=== PATIENT | male | born 1950 | race Caucasian/White ===

== ENCOUNTER 2017-11-04 20:00 | Inpatient (IN) | payer MEDICARE, OTHER ==
[~2017-11-04] VITALS: Ht 175.3 cm; Wt 68.0 kg
[~2017-11-04 20:00] MED LIST: 0.9 % SODIUM CHLORIDE 10 ML VIAL ONE; atropine 0.1mg/ml 10ml syringe ONE; calcium chloride 100 MG/1 ML inj IV ONE; dextrose 50%-water 50ml dispensing syringe IV ONE; epiNEPHrine 0.1mg/ml 10ml syringe ONE; rocuronium 10mg/ml inj IV ONE; sodium bicarbonate (8.4%) 1 mEq/ml syringe ONE
[2017-11-04] MEDS ORDERED: normal saline 1000ml 1,000 ML IV ONE ×3 (20:35→21:55)
[2017-11-04] MEDS ORDERED: diltiazem 5mg/ml 5ml inj. IV ONE ×2 (20:35→21:00)
[2017-11-04] MEDS ORDERED: aspirin 81mg tab.chew PO ONE (20:35)
[2017-11-04] MEDS ORDERED: LORazepam 2 mg/ml vial IV ONE (20:35)
[2017-11-04] MEDS ORDERED: diltiazem-NS 100mg/100ml 100 ML IV SCH (20:55)
[2017-11-04] MEDS ORDERED: ondansetron/PF 4mg/2ml inj IV ONE (21:00)
[2017-11-04 21:05] LABS: BASOPHILS % (AUTO) 0 % (0-1); EOSINOPHILS # (AUTO) 0.1 X10'3 (0-0.9); EOSINOPHILS % (AUTO) 0.8 % (0-6); HEMATOCRIT 44.3 % (42.0-52.0); LYMPHOCYTES # (AUTO) 0.7 X10'3 (1.1-4.8); LYMPHOCYTES % (AUTO) 6.7 % (21-51); MEAN CORPUSCULAR HEMOGLOBIN 33.6 PG (27.0-31.0); MEAN CORPUSCULAR HGB CONC 33.8 % (33.0-36.5); MEAN CORPUSCULAR VOLUME 99.2 FL (78-98); MEAN PLATELET VOLUME 11.2 FL (7.4-10.4); MONOCYTES # (AUTO) 0.9 X10'3 (0-0.9); MONOCYTES % (AUTO) 8.7 % (2-12); NEUTROPHILS # (AUTO) 8.8 X10'3 (1.8-7.7); NEUTROPHILS % (AUTO) 83.8 % (42-75); PLATELET COUNT 115 X10'3 (140-440); RED BLOOD COUNT 4.46 X10'6 (4.70-6.10); WHITE BLOOD COUNT 10.5 X10'3 (4.5-11.0)
[2017-11-04 21:20] LABS: ALBUMIN 3.9 G/DL (3.4-5.0); ALBUMIN/GLOBULIN RATIO 1.2 (1.1-1.5); ALKALINE PHOSPHATASE 132 IU/L (46-116); ANION GAP 25 (8-16); BILIRUBIN,TOTAL 2.8 MG/DL (0.1-1.0); BLOOD UREA NITROGEN 65 MG/DL (7-18); BUN/CREATININE RATIO 22.9 (5.4-32.0); CALCIUM 8.8 MG/DL (8.5-10.1); CHLORIDE 93 MMOL/L (99-107); CREATININE 2.84 MG/DL (0.60-1.10); GLUCOSE 122 MG/DL (70-104); MAGNESIUM 2.8 MG/DL (1.5-2.4); SODIUM 131 MMOL/L (135-145); TOTAL PROTEIN 7.1 G/DL (6.4-8.2); eGFR 22 ML/MIN
[2017-11-04 21:28] LABS: ALANINE AMINOTRANSFERASE 1920 U/L (12-78); POTASSIUM 5.1 MMOL/L (3.5-5.1)
[2017-11-04 21:37] LABS: TOTAL CARBON DIOXIDE 12.9 MMOL/L (24-32)
[2017-11-04 22:09] LABS: ASPARTATE AMINO TRANSFERASE 2938 U/L (10-37)
[2017-11-04] MEDS ORDERED: ALBU18HF2 (22:15)
[2017-11-04] MEDS ORDERED: PROC10TA10 (22:15)
[2017-11-04] MEDS ORDERED: AZIT250T27 (22:15)
[2017-11-04] MEDS ORDERED: amiodarone 150mg/dext, iso-os 100 ML IV ONE (22:40)
[2017-11-04] MEDS ORDERED: potassium Cl 20 mEq SR tablet PO PRN ×2 (23:00)
[2017-11-04] MEDS ORDERED: potassium Cl 40MEQ/NS 500ml 500 ML IV PRN ×2 (23:00)
[2017-11-04] MEDS ORDERED: acetaminophen 325mg tablet PO PRN ×2 (23:00)
[2017-11-04] MEDS ORDERED: ondansetron/PF 4mg/2ml inj IV PRN (23:00)
[2017-11-04] MEDS ORDERED: morphine 2 MG/ML inj. syringe IV PRN (23:00)
[2017-11-04] MEDS ORDERED: morphine 4 MG/ML inj SYRINge IV PRN (23:00)
[2017-11-04] MEDS: K, MAG and/or Phos replacement - Verify level? MC SCH (23:00)
[2017-11-04] MEDS: normal saline 1000ml 1,000 ML IV SCH (23:00)
[2017-11-04] MEDS: amiodarone/D5 360MG/200ML BAG 200 ML IV SCH (23:53)
[2017-11-05] VITALS (43 sets, daily range): BP systolic 31–136; BP diastolic 19–94
[2017-11-05 00:41] LABS: ALBUMIN/GLOBULIN RATIO 1.2 (1.1-1.5); ALKALINE PHOSPHATASE 102 IU/L (46-116); ANION GAP 27 (8-16); BILIRUBIN,TOTAL 2.5 MG/DL (0.1-1.0); BLOOD UREA NITROGEN 63 MG/DL (7-18); BUN/CREATININE RATIO 23.3 (5.4-32.0); CALCIUM 7.5 MG/DL (8.5-10.1); CHLORIDE 97 MMOL/L (99-107); GLUCOSE 127 MG/DL (70-104); MAGNESIUM 2.6 MG/DL (1.5-2.4); PHOSPHORUS 8.2 MG/DL (2.3-4.5); POTASSIUM 4.9 MMOL/L (3.5-5.1); SODIUM 131 MMOL/L (135-145); TOTAL PROTEIN 5.5 G/DL (6.4-8.2); eGFR 24 ML/MIN
[2017-11-05 00:48] LABS: TOTAL CARBON DIOXIDE 6.9 MMOL/L (24-32)
[2017-11-05 01:02] LABS: ALANINE AMINOTRANSFERASE 1497 U/L (12-78); ASPARTATE AMINO TRANSFERASE 2567 U/L (10-37)
[2017-11-05 02:17] LABS: LARGE PLATELETS FEW; PLATELET ESTIMATE DECREASED
[2017-11-05] MEDS ORDERED: dextrose 50%-water 50ml dispensing syringe IV ONE (03:00)
[2017-11-05] MEDS: DOPamine 400mg/D5W 250ml 250 ML IV ONE ×2 (03:20→03:39)
[2017-11-05] MEDS ORDERED: ePHEDrine 50MG/ML INJ. IV ONE (03:40)
[2017-11-05] MEDS ORDERED: atropine 0.1mg/ml 10ml syringe IV ONE (03:40)
[2017-11-05] MEDS ORDERED: normal saline 500ml IV soln 500 ML IV ONE ×2 (03:45→04:30)
[2017-11-05] MEDS ORDERED: NORepinephrine 8mg/ 250ml NS 250 ML IV ONE ×2 (03:50→08:32)
[2017-11-05] MEDS ORDERED: epiNEPHrine 1 mg/ml inj IV STA (03:50)
[2017-11-05] MEDS ORDERED: vasoPRESSIN 20 units/ml inj. ONE (04:07)
[2017-11-05 04:10] LABS: ABG BASE EXCESS -29.4 mmol/L (-2.0-3.0); ABG HCO3 7.9 mmol/L (22.0-26.0); ABG OXYGEN SATURATION 72.3 % (95-98); ABG PH (T) 6.693 (7.350-7.450); ABG PO2 (T) 68.9 mmHg (83-108); FCOHb 0.3 % (0.5-1.5); FMetHb 0.5 % (0.3-1.12); FO2Hb 71.7 % (94-100); PATIENT TEMPERATURE 35.9; RESPIRATORY RATE (OBSERVED) 20 b/min; TOTAL HEMOGLOBIN 13.5 G/dl (14.0-18.0)
[2017-11-05] MEDS: vasopressin inj. 60 UNIT in normal saline 100ml IV soln 97 ML IV SCH ×2 (04:25→17:59)
[2017-11-05] MEDS ORDERED: rocuronium 10mg/ml inj IV ONE (04:25)
[2017-11-05] MEDS ORDERED: normal saline 1000ml 1,000 ML IV ONE (04:30)
[2017-11-05 04:35] LABS: ALBUMIN 2.6 G/DL (3.4-5.0); ALBUMIN/GLOBULIN RATIO 1.1 (1.1-1.5); ALKALINE PHOSPHATASE 96 IU/L (46-116); ANION GAP 24 (8-16); BILIRUBIN,TOTAL 2.5 MG/DL (0.1-1.0); BLOOD UREA NITROGEN 62 MG/DL (7-18); BUN/CREATININE RATIO 19.7 (5.4-32.0); CALCIUM 7.3 MG/DL (8.5-10.1); CHLORIDE 97 MMOL/L (99-107); CREATININE 3.14 MG/DL (0.60-1.10); GLUCOSE 187 MG/DL (70-104); SODIUM 131 MMOL/L (135-145); TOTAL PROTEIN 4.9 G/DL (6.4-8.2); eGFR 20 ML/MIN
[2017-11-05] MEDS ORDERED: sodium bicarbonate (8.4%) 1 mEq/ml syringe ONE (04:38)
[2017-11-05] MEDS ORDERED: sodium bicarbonate (8.4%) 1 mEq/ml syringe IV ONE ×2 (04:40→20:00)
[2017-11-05] MEDS: sod bicarbonate 150mEq in D5W 1,150 ML IV SCH ×3 (04:41→17:46)
[2017-11-05] MEDS: amiodarone/D5 360MG/200ML BAG 200 ML IV SCH ×4 (04:43→22:55)
[2017-11-05 04:48] LABS: ALANINE AMINOTRANSFERASE 1477 U/L (12-78); ASPARTATE AMINO TRANSFERASE 3052 U/L (10-37); POTASSIUM 5.6 MMOL/L (3.5-5.1)
[2017-11-05 04:49] LABS: TOTAL CARBON DIOXIDE 9.8 MMOL/L (24-32)
[2017-11-05 05:11] LABS: ABG BASE EXCESS -20.6 mmol/L (-2.0-3.0); ABG HCO3 11.1 mmol/L (22.0-26.0); ABG OXYGEN SATURATION 81.3 % (95-98); ABG PCO2 (T) 43.4 mmHg (35.0-48.0); ABG PH (T) 7.001 (7.350-7.450); ABG PO2 (T) 58.7 mmHg (83-108); FCOHb 0.3 % (0.5-1.5); FMetHb 0.4 % (0.3-1.12); FO2Hb 80.7 % (94-100); MINUTE VOLUME 12 L/min; PATIENT TEMPERATURE 33.6; PEEP 5 cm H2O; RESPIRATORY RATE 25 b/min; RESPIRATORY RATE (OBSERVED) 25 b/min; TIDAL VOLUME 450 mL; TOTAL HEMOGLOBIN 12.8 G/dl (14.0-18.0)
[2017-11-05] MEDS ORDERED: FENTANYL-0.9 % NACL/PF 100 ML IV PRN (05:15)
[2017-11-05] MEDS ORDERED: ipratropium/albuterol 3ml nebule NEB PRN (05:15)
[2017-11-05] MEDS ORDERED: midazolam 100mg in NS 100ml 100 ML IV PRN (05:15)
[2017-11-05] MEDS: piperacillin-tazo 2.25gm/50ml 50 ML IV SCH ×3 (05:50→20:38)
[2017-11-05] MEDS ORDERED: piperacillin/tazo 3.375gm/50ml 50 ML IV ONE (05:55)
[2017-11-05 06:32] LABS: ALBUMIN 2.6 G/DL (3.4-5.0); ANION GAP 27 (8-16); BLOOD UREA NITROGEN 62 MG/DL (7-18); BUN/CREATININE RATIO 21.2 (5.4-32.0); CHLORIDE 96 MMOL/L (99-107); CREATININE 2.92 MG/DL (0.60-1.10); GLUCOSE 215 MG/DL (70-104); SODIUM 133 MMOL/L (135-145); eGFR 22 ML/MIN
[2017-11-05 06:35] LABS: POTASSIUM 4.4 MMOL/L (3.5-5.1)
[2017-11-05 06:37] LABS: TOTAL CARBON DIOXIDE 10.1 MMOL/L (24-32)
[2017-11-05 06:39] LABS: PARTIAL THROMBOPLASTIN TIME 66 SECONDS (22-32); PROTHROMBIN TIME 40.8 SECONDS (9.0-12.0)
[2017-11-05] MEDS ORDERED: calcium chloride 100 MG/1 ML inj IV ONE ×2 (06:45)
[2017-11-05 06:49] LABS: BASOPHILS % (AUTO) 0.3 % (0-1); EOSINOPHILS % (AUTO) 0.1 % (0-6); HEMATOCRIT 37.8 % (42.0-52.0); HEMOGLOBIN 12.7 g/dl (14.0-17.9); LYMPHOCYTES # (AUTO) 0.5 X10'3 (1.1-4.8); LYMPHOCYTES % (AUTO) 5.8 % (21-51); MEAN CORPUSCULAR HEMOGLOBIN 33.5 PG (27.0-31.0); MEAN CORPUSCULAR HGB CONC 33.6 % (33.0-36.5); MEAN CORPUSCULAR VOLUME 99.6 FL (78-98); MEAN PLATELET VOLUME 9.5 FL (7.4-10.4); MONOCYTES # (AUTO) 0.2 X10'3 (0-0.9); MONOCYTES % (AUTO) 2.2 % (2-12); NEUTROPHILS # (AUTO) 7.2 X10'3 (1.8-7.7); NEUTROPHILS % (AUTO) 91.6 % (42-75); RED BLOOD COUNT 3.79 X10'6 (4.70-6.10); RED CELL DISTRIBUTION WIDTH 14.1 % (11.5-14.5); WHITE BLOOD COUNT 7.9 X10'3 (4.5-11.0)
[2017-11-05 06:57] LABS: INR 4.1 INR
[2017-11-05 07:07] LABS: CLARITY,URINE SLIGHTLY CLOUDY (Clear); COLOR,URINE YELLOW (Yellow); GLUCOSE, URINE NEGATIVE (Neg); KETONES,URINE NEGATIVE (Neg); LEUKOCYTE ESTERASE ,URINE NEGATIVE (Neg); NITRITES, URINE NEGATIVE (Neg); OCCULT BLOOD,URINE TRACE-INTACT (Neg); PH,URINE 5.5 (4.8-8.0); PROTEIN,URINE 100 mg/dl (Neg); UROBILINOGEN,URINE 0.2 E.U/dL (0.2-1.0)
[2017-11-05 07:21] LABS: SODIUM,URINE RANDOM < 15 MEQ/L; TOTAL PROTEIN,URINE RANDOM 127.7 MG/DL; UA COLLECTION TYPE FOLEY CATH
[2017-11-05 07:22] LABS: AMORPHOUS URATES 2+
[2017-11-05 07:23] LABS: BACTERIA,URINE NONE SEEN /HPF (Neg); RBC,URINE NONE SEEN /HPF (0-2); SQUAMOUS EPITHELIAL CELL,UR FEW /LPF (FEW); WBC,URINE 0-4 /HPF (0-4)
[2017-11-05 07:41] LABS: OSMOLALITY UA 509 MOSM/K (50-1400)
[2017-11-05 07:54] LABS: PLATELET COUNT 50 X10'3 (140-440)
[2017-11-05] MEDS: K, MAG and/or Phos replacement - Verify level? MC SCH (08:00)
[2017-11-05] MEDS: heparin, porcine 5000 units/ml vial SQ SCH ×2 (08:00→20:00)
[2017-11-05 08:03] LABS: UA EOSINOPHILS NO EOS /HPF
[2017-11-05] MEDS: hydrocortisone sod succ/PF 100mg/2ml inj. IV SCH ×3 (08:12→19:10)
[2017-11-05 08:18] LABS: ACETAMINOPHEN 2.4 UG/ML (10-30)
[2017-11-05] MEDS ORDERED: levoFLOXACIN-Levaquin 750MG/D5 150 ML IV SCH (09:00)
[2017-11-05 09:01] LABS: ABG BASE EXCESS -17.2 mmol/L (-2.0-3.0); ABG HCO3 10.1 mmol/L (22.0-26.0); ABG OXYGEN SATURATION 97.8 % (95-98); ABG PCO2 (T) 25.8 mmHg (35.0-48.0); ABG PH (T) 7.194 (7.350-7.450); ABG PO2 (T) 123.5 mmHg (83-108); FCOHb 0.3 % (0.5-1.5); FMetHb 0.3 % (0.3-1.12); FO2Hb 97.2 % (94-100); MINUTE VOLUME 12 L/min; PATIENT TEMPERATURE 34.2; PEEP 8 cm H2O; RESPIRATORY RATE 25 b/min; RESPIRATORY RATE (OBSERVED) 26 b/min; TIDAL VOLUME 450 mL; TOTAL HEMOGLOBIN 13.7 G/dl (14.0-18.0)
[2017-11-05] MEDS ORDERED: MIDAZolam 5mg/ml 2ml vial ONE (09:37)
[2017-11-05] MEDS ORDERED: fentaNYL/PF 50MCG/1 ML 2ML syringe ONE (09:40)
[2017-11-05] MEDS ORDERED: normal saline 1000ml 1,000 ML IVB ONE ×2 (10:00→18:04)
[2017-11-05] MEDS ORDERED: DOPamine 400mg/D5W 250ml 250 ML IV ONE ×3 (10:01→22:35)
[2017-11-05] MEDS ORDERED: MIDAZolam 5mg/ml 2ml vial IV ONE (10:20)
[2017-11-05] MEDS ORDERED: fentaNYL/PF 50MCG/1 ML 2ML syringe IV ONE (10:20)
[2017-11-05 10:26] LABS: ABG BASE EXCESS -18.1 mmol/L (-2.0-3.0); ABG HCO3 8.7 mmol/L (22.0-26.0); ABG OXYGEN SATURATION 93.3 % (95-98); ABG PCO2 (T) 22.4 mmHg (35.0-48.0); ABG PH (T) 7.196 (7.350-7.450); ABG PO2 (T) 78.9 mmHg (83-108); FCOHb 0.3 % (0.5-1.5); FMetHb 0.2 % (0.3-1.12); FO2Hb 92.8 % (94-100); MINUTE VOLUME 12 L/min; PATIENT TEMPERATURE 35.1; PEEP 8 cm H2O; RESPIRATORY RATE 25 b/min; RESPIRATORY RATE (OBSERVED) 25 b/min; TIDAL VOLUME 450 mL; TOTAL HEMOGLOBIN 12.2 G/dl (14.0-18.0)
[2017-11-05] MEDS ORDERED: magnesium 4gm in 100ml NS 100 ML IV PRN (10:30)
[2017-11-05] MEDS ORDERED: sodium phosphate inj. 30 MMOL in normal saline 250ml IV soln 250 ML IV PRN (10:30)
[2017-11-05] MEDS ORDERED: potassium Cl 20mEq/100mL bag 100 ML IV PRN (10:30)
[2017-11-05] MEDS ORDERED: calcium chloride inj. 1,000 MG in normal saline 100ml IV soln 100 ML IV PRN (10:30)
[2017-11-05] MEDS: normal saline 1000ml 1,000 ML IV SCH (11:07)
[2017-11-05] MEDS: Duosol 4K/3 Ca (w/calcium) 5,000 ML HE SCH ×6 (11:20→23:49)
[2017-11-05] MEDS: NORepinephrine 8mg/ 250ml NS 250 ML IV SCH ×2 (12:11→17:36)
[2017-11-05] MEDS: albumin (human) 25% 100 ML IV solution IV SCH ×3 (12:27→19:11)
[2017-11-05 13:39] LABS: BASOPHILS % (AUTO) 0.1 % (0-1); EOSINOPHILS % (AUTO) 0 % (0-6); HEMATOCRIT 35.5 % (42.0-52.0); LYMPHOCYTES # (AUTO) 0.3 X10'3 (1.1-4.8); MEAN CORPUSCULAR HEMOGLOBIN 33.7 PG (27.0-31.0); MEAN CORPUSCULAR HGB CONC 33.8 % (33.0-36.5); MEAN CORPUSCULAR VOLUME 99.6 FL (78-98); MEAN PLATELET VOLUME 9.9 FL (7.4-10.4); MONOCYTES # (AUTO) 0.5 X10'3 (0-0.9); MONOCYTES % (AUTO) 4.1 % (2-12); NEUTROPHILS # (AUTO) 10.3 X10'3 (1.8-7.7); NEUTROPHILS % (AUTO) 92.8 % (42-75); RED BLOOD COUNT 3.56 X10'6 (4.70-6.10); RED CELL DISTRIBUTION WIDTH 13.8 % (11.5-14.5); WHITE BLOOD COUNT 11.1 X10'3 (4.5-11.0)
[2017-11-05 13:43] LABS: ALBUMIN 3.3 G/DL (3.4-5.0); ANION GAP 24 (8-16); BLOOD UREA NITROGEN 51 MG/DL (7-18); BUN/CREATININE RATIO 19.4 (5.4-32.0); CHLORIDE 96 MMOL/L (99-107); CREATININE 2.63 MG/DL (0.60-1.10); GLUCOSE 200 MG/DL (70-104); MAGNESIUM 2.1 MG/DL (1.5-2.4); PHOSPHORUS 7.9 MG/DL (2.3-4.5); POTASSIUM 4.8 MMOL/L (3.5-5.1); SODIUM 132 MMOL/L (135-145); eGFR 24 ML/MIN
[2017-11-05 13:49] LABS: TOTAL CARBON DIOXIDE 12.5 MMOL/L (24-32)
[2017-11-05 13:58] LABS: PLATELET COUNT 19 X10'3 (140-440)
[2017-11-05 14:01] LABS: NUCLEATED RED BLOOD CELLS 5 /100WBC (0-0); PLATELET ESTIMATE DECREASED; TOTAL CELLS COUNTED 100
[2017-11-05 14:02] LABS: ANISOCYTOSIS 1+; POLYCHROMASIA 1+
[2017-11-05 14:33] LABS: BASOPHILS # (AUTO) 0.1 X10'3 (0-0.2); BASOPHILS % (AUTO) 0.6 % (0-1); EOSINOPHILS % (AUTO) 0 % (0-6); HEMOGLOBIN 11.8 g/dl (14.0-17.9); LYMPHOCYTES # (AUTO) 0.3 X10'3 (1.1-4.8); LYMPHOCYTES % (AUTO) 2.8 % (21-51); MEAN CORPUSCULAR HEMOGLOBIN 33.7 PG (27.0-31.0); MEAN CORPUSCULAR HGB CONC 33.7 % (33.0-36.5); MEAN PLATELET VOLUME 9.5 FL (7.4-10.4); MONOCYTES # (AUTO) 0.4 X10'3 (0-0.9); MONOCYTES % (AUTO) 3.8 % (2-12); NEUTROPHILS # (AUTO) 10.4 X10'3 (1.8-7.7); NEUTROPHILS % (AUTO) 92.8 % (42-75); RED CELL DISTRIBUTION WIDTH 13.9 % (11.5-14.5); WHITE BLOOD COUNT 11.2 X10'3 (4.5-11.0)
[2017-11-05 14:37] LABS: PLATELET COUNT 18 X10'3 (140-440)
[2017-11-05 14:43] LABS: ALBUMIN 3.3 G/DL (3.4-5.0); ANION GAP 21 (8-16); BLOOD UREA NITROGEN 49 MG/DL (7-18); BUN/CREATININE RATIO 18.8 (5.4-32.0); CHLORIDE 97 MMOL/L (99-107); CREATININE 2.61 MG/DL (0.60-1.10); GLUCOSE 194 MG/DL (70-104); MAGNESIUM 2.1 MG/DL (1.5-2.4); PHOSPHORUS 7.4 MG/DL (2.3-4.5); POTASSIUM 4.7 MMOL/L (3.5-5.1); SODIUM 132 MMOL/L (135-145); eGFR 25 ML/MIN
[2017-11-05 14:48] LABS: TOTAL CARBON DIOXIDE 14.3 MMOL/L (24-32)
[2017-11-05 15:38] LABS: BASOPHILS # (AUTO) 0.1 X10'3 (0-0.2); BASOPHILS % (AUTO) 0.9 % (0-1); EOSINOPHILS # (AUTO) 0.1 X10'3 (0-0.9); EOSINOPHILS % (AUTO) 0.5 % (0-6); HEMATOCRIT 33.4 % (42.0-52.0); HEMOGLOBIN 11.2 g/dl (14.0-17.9); LYMPHOCYTES # (AUTO) 0.3 X10'3 (1.1-4.8); LYMPHOCYTES % (AUTO) 2.6 % (21-51); MEAN CORPUSCULAR HEMOGLOBIN 33.4 PG (27.0-31.0); MEAN CORPUSCULAR HGB CONC 33.5 % (33.0-36.5); MEAN CORPUSCULAR VOLUME 99.6 FL (78-98); MONOCYTES # (AUTO) 0.1 X10'3 (0-0.9); MONOCYTES % (AUTO) 1.4 % (2-12); NEUTROPHILS % (AUTO) 94.6 % (42-75); PLATELET COUNT 60 X10'3 (140-440); RED BLOOD COUNT 3.35 X10'6 (4.70-6.10); RED CELL DISTRIBUTION WIDTH 13.6 % (11.5-14.5); WHITE BLOOD COUNT 10.6 X10'3 (4.5-11.0)
[2017-11-05 15:51] LABS: ALBUMIN 3.1 G/DL (3.4-5.0); ANION GAP 20 (8-16); BLOOD UREA NITROGEN 46 MG/DL (7-18); BUN/CREATININE RATIO 18.7 (5.4-32.0); CHLORIDE 97 MMOL/L (99-107); CREATININE 2.46 MG/DL (0.60-1.10); GLUCOSE 183 MG/DL (70-104); PHOSPHORUS 6.2 MG/DL (2.3-4.5); POTASSIUM 4.4 MMOL/L (3.5-5.1); SODIUM 133 MMOL/L (135-145); TOTAL CARBON DIOXIDE 16.5 MMOL/L (24-32); eGFR 26 ML/MIN
[2017-11-05 16:38] LABS: BASOPHILS # (AUTO) 0.2 X10'3 (0-0.2); BASOPHILS % (AUTO) 1.7 % (0-1); EOSINOPHILS % (AUTO) 0 % (0-6); HEMATOCRIT 33.6 % (42.0-52.0); HEMOGLOBIN 11.5 g/dl (14.0-17.9); LYMPHOCYTES # (AUTO) 0.4 X10'3 (1.1-4.8); LYMPHOCYTES % (AUTO) 3.3 % (21-51); MEAN CORPUSCULAR HEMOGLOBIN 33.6 PG (27.0-31.0); MEAN CORPUSCULAR HGB CONC 34.1 % (33.0-36.5); MEAN CORPUSCULAR VOLUME 98.5 FL (78-98); MEAN PLATELET VOLUME 8.1 FL (7.4-10.4); MONOCYTES # (AUTO) 0.4 X10'3 (0-0.9); MONOCYTES % (AUTO) 3.5 % (2-12); NEUTROPHILS # (AUTO) 10.3 X10'3 (1.8-7.7); NEUTROPHILS % (AUTO) 91.5 % (42-75); PLATELET COUNT 75 X10'3 (140-440); RED BLOOD COUNT 3.41 X10'6 (4.70-6.10); RED CELL DISTRIBUTION WIDTH 13.8 % (11.5-14.5); WHITE BLOOD COUNT 11.3 X10'3 (4.5-11.0)
[2017-11-05 16:46] LABS: ALBUMIN 3.2 G/DL (3.4-5.0); ANION GAP 21 (8-16); BLOOD UREA NITROGEN 44 MG/DL (7-18); BUN/CREATININE RATIO 18.1 (5.4-32.0); CHLORIDE 98 MMOL/L (99-107); CREATININE 2.43 MG/DL (0.60-1.10); GLUCOSE 174 MG/DL (70-104); MAGNESIUM 2.1 MG/DL (1.5-2.4); PHOSPHORUS 5.6 MG/DL (2.3-4.5); POTASSIUM 4.4 MMOL/L (3.5-5.1); SODIUM 134 MMOL/L (135-145); TOTAL CARBON DIOXIDE 15.4 MMOL/L (24-32); eGFR 27 ML/MIN
[2017-11-05 17:04] LABS: PLATELET ESTIMATE DECREASED
[2017-11-05 17:06] LABS: ABG BASE EXCESS -10.7 mmol/L (-2.0-3.0); ABG HCO3 12.8 mmol/L (22.0-26.0); ABG OXYGEN SATURATION 97.6 % (95-98); ABG PCO2 (T) 22.1 mmHg (35.0-48.0); ABG PH (T) 7.375 (7.350-7.450); ABG PO2 (T) 109.4 mmHg (83-108); FCOHb 0.3 % (0.5-1.5); FMetHb 0.1 % (0.3-1.12); FO2Hb 97.2 % (94-100); MINUTE VOLUME 13 L/min; PATIENT TEMPERATURE 36.1; PEEP 8 cm H2O; RESPIRATORY RATE 25 b/min; RESPIRATORY RATE (OBSERVED) 25 b/min; TIDAL VOLUME 450 mL; TOTAL HEMOGLOBIN 12.5 G/dl (14.0-18.0)
[2017-11-05 17:06] LABS: POLYCHROMASIA 1+
[2017-11-05 17:48] LABS: INR 2.6 INR; PARTIAL THROMBOPLASTIN TIME 43 SECONDS (22-32); PROTHROMBIN TIME 26.1 SECONDS (9.0-12.0)
[2017-11-05] MEDS ORDERED: DOPamine 400mg/D5W 250ml 250 ML IV SCH (18:05)
[2017-11-05] MEDS ORDERED: phenylephrine inj 10 MG in normal saline 250ml IV soln 250 ML IV PRN (19:20)
[2017-11-05 19:29] LABS: TOTAL CELLS COUNTED 100
[2017-11-05 19:36] LABS: ABG BASE EXCESS -15.5 mmol/L (-2.0-3.0); ABG HCO3 10.9 mmol/L (22.0-26.0); ABG OXYGEN SATURATION 95.4 % (95-98); ABG PCO2 (T) 25.9 mmHg (35.0-48.0); ABG PH (T) 7.233 (7.350-7.450); ABG PO2 (T) 89.6 mmHg (83-108); FCOHb 0.3 % (0.5-1.5); FMetHb 0.2 % (0.3-1.12); FO2Hb 94.9 % (94-100); MINUTE VOLUME 13 L/min; PATIENT TEMPERATURE 35.3; PEEP 8 cm H2O; RESPIRATORY RATE 25 b/min; RESPIRATORY RATE (OBSERVED) 25 b/min; TIDAL VOLUME 450 mL; TOTAL HEMOGLOBIN 11.9 G/dl (14.0-18.0)
[2017-11-05] MEDS ORDERED: DOBUTamine-DoBUTrex 500mg/D5W 250 ML IV ONE (19:52)
[2017-11-05] MEDS ORDERED: phenylephrine inj 10 MG in normal saline 250ml IV soln 249 ML IV SCH (19:55)
[2017-11-05] MEDS ORDERED: albumin (human) 25% 100 ML IV solution IV ONE (19:55)
[2017-11-05] MEDS ORDERED: vancomycin/NS 1 GM ADD-VANTAGE 250 ML IV SCH (20:00)
[2017-11-05] MEDS ORDERED: DOBUTamine-DoBUTrex 500mg/D5W 250 ML IV PRN (20:00)
[2017-11-05 20:04] LABS: BASOPHILS % (AUTO) 0.3 % (0-1); EOSINOPHILS % (AUTO) 0 % (0-6); HEMATOCRIT 31.5 % (42.0-52.0); HEMOGLOBIN 10.6 g/dl (14.0-17.9); LYMPHOCYTES # (AUTO) 0.7 X10'3 (1.1-4.8); LYMPHOCYTES % (AUTO) 6.6 % (21-51); MEAN CORPUSCULAR HEMOGLOBIN 33.7 PG (27.0-31.0); MEAN CORPUSCULAR HGB CONC 33.7 % (33.0-36.5); MEAN CORPUSCULAR VOLUME 100.1 FL (78-98); MEAN PLATELET VOLUME 7.8 FL (7.4-10.4); MONOCYTES # (AUTO) 0.5 X10'3 (0-0.9); MONOCYTES % (AUTO) 4.3 % (2-12); NEUTROPHILS % (AUTO) 88.8 % (42-75); RED BLOOD COUNT 3.15 X10'6 (4.70-6.10); RED CELL DISTRIBUTION WIDTH 13.7 % (11.5-14.5); WHITE BLOOD COUNT 11.3 X10'3 (4.5-11.0)
[2017-11-05 20:08] LABS: PLATELET COUNT 38 X10'3 (140-440)
[2017-11-05 20:13] LABS: ALBUMIN 3.9 G/DL (3.4-5.0); ANION GAP 23 (8-16); BLOOD UREA NITROGEN 35 MG/DL (7-18); BUN/CREATININE RATIO 16.7 (5.4-32.0); CHLORIDE 100 MMOL/L (99-107); GLUCOSE 111 MG/DL (70-104); MAGNESIUM 1.9 MG/DL (1.5-2.4); PHOSPHORUS 6.4 MG/DL (2.3-4.5); POTASSIUM 5.1 MMOL/L (3.5-5.1); SODIUM 135 MMOL/L (135-145); eGFR 32 ML/MIN
[2017-11-05 20:24] LABS: TOTAL CARBON DIOXIDE 12.1 MMOL/L (24-32)
[2017-11-05] MEDS ORDERED: epiNEPHrine inj 5 MG, calcium chloride inj. 1,000 MG in normal saline 250ml IV soln 235 ML IV PRN (20:35)
[2017-11-05] MEDS: DOPamine 400mg/D5W 250ml 250 ML IV SCH (22:38)
[2017-11-05 23:25] LABS: INR 3.7 INR; PARTIAL THROMBOPLASTIN TIME 69 SECONDS (22-32); PROTHROMBIN TIME 36.1 SECONDS (9.0-12.0)
[2017-11-06] VITALS (11 sets, daily range): BP systolic 52–116; BP diastolic 33–58
[2017-11-06 00:16] LABS: ABG BASE EXCESS -26.1 mmol/L (-2.0-3.0); ABG HCO3 4.8 mmol/L (22.0-26.0); ABG OXYGEN SATURATION 92.1 % (95-98); ABG PCO2 (T) 22.6 mmHg (35.0-48.0); ABG PH (T) 6.938 (7.350-7.450); ABG PO2 (T) 97.5 mmHg (83-108); FCOHb 0.1 % (0.5-1.5); FMetHb 0.5 % (0.3-1.12); FO2Hb 91.5 % (94-100); MINUTE VOLUME 13 L/min; PATIENT TEMPERATURE 36.5; PEEP 8 cm H2O; RESPIRATORY RATE 25 b/min; RESPIRATORY RATE (OBSERVED) 26 b/min; TIDAL VOLUME 450 mL; TOTAL HEMOGLOBIN 10.3 G/dl (14.0-18.0)
[2017-11-06 00:44] LABS: BASOPHILS % (AUTO) 0 % (0-1); EOSINOPHILS % (AUTO) 0.2 % (0-6); HEMATOCRIT 26.6 % (42.0-52.0); HEMOGLOBIN 8.9 g/dl (14.0-17.9); LYMPHOCYTES # (AUTO) 0.6 X10'3 (1.1-4.8); LYMPHOCYTES % (AUTO) 8.9 % (21-51); MEAN CORPUSCULAR HEMOGLOBIN 33.8 PG (27.0-31.0); MEAN CORPUSCULAR HGB CONC 33.4 % (33.0-36.5); MEAN CORPUSCULAR VOLUME 101.2 FL (78-98); MEAN PLATELET VOLUME 9.1 FL (7.4-10.4); MONOCYTES # (AUTO) 0.2 X10'3 (0-0.9); MONOCYTES % (AUTO) 3.3 % (2-12); NEUTROPHILS # (AUTO) 6.2 X10'3 (1.8-7.7); NEUTROPHILS % (AUTO) 87.6 % (42-75); RED BLOOD COUNT 2.63 X10'6 (4.70-6.10); RED CELL DISTRIBUTION WIDTH 14.6 % (11.5-14.5); WHITE BLOOD COUNT 7.1 X10'3 (4.5-11.0)
[2017-11-06 01:09] LABS: ALBUMIN 3.2 G/DL (3.4-5.0); ALBUMIN/GLOBULIN RATIO 1.9 (1.1-1.5); ALKALINE PHOSPHATASE 72 IU/L (46-116); ANION GAP 27 (8-16); BLOOD UREA NITROGEN 34 MG/DL (7-18); CHLORIDE 98 MMOL/L (99-107); CREATININE 2.61 MG/DL (0.60-1.10); GLUCOSE 90 MG/DL (70-104); MAGNESIUM 2.6 MG/DL (1.5-2.4); SODIUM 140 MMOL/L (135-145); TOTAL PROTEIN 4.9 G/DL (6.4-8.2); eGFR 25 ML/MIN
[2017-11-06 01:11] LABS: ALANINE AMINOTRANSFERASE 2581 U/L (12-78); PHOSPHORUS 12.4 MG/DL (2.3-4.5)
[2017-11-06 01:15] LABS: POTASSIUM 8.2 MMOL/L (3.5-5.1); TOTAL CARBON DIOXIDE 14.9 MMOL/L (24-32)
[2017-11-06] MEDS: Duosol 4K/3 Ca (w/calcium) 5,000 ML HE SCH ×4 (01:21→06:04)
[2017-11-06] MEDS ORDERED: calcium chloride 100 MG/1 ML inj IV ONE (01:30)
[2017-11-06] MEDS ORDERED: dextrose 50%-water 50ml dispensing syringe IV ONE (01:30)
[2017-11-06] MEDS ORDERED: insulin regular, human 10 units/0.1 ml syringe IV ONE ×2 (01:30→01:55)
[2017-11-06] MEDS: normal saline 1000ml 1,000 ML IV SCH (01:38)
[2017-11-06 01:42] LABS: ASPARTATE AMINO TRANSFERASE > 7000 U/L (10-37)
[2017-11-06] MEDS: hydrocortisone sod succ/PF 100mg/2ml inj. IV SCH (02:11)
[2017-11-06] MEDS: piperacillin-tazo 2.25gm/50ml 50 ML IV SCH (02:12)
[2017-11-06] MEDS: albumin (human) 25% 100 ML IV solution IV SCH (02:13)
[2017-11-06 03:26] LABS: PLATELET COUNT 20 X10'3 (140-440)
[2017-11-06] MEDS ORDERED: DOPamine 400mg/D5W 250ml 250 ML IV ONE (03:28)
[2017-11-06] MEDS: DOPamine 400mg/D5W 250ml 250 ML IV SCH (03:31)
[2017-11-06 03:33] LABS: NUCLEATED RED BLOOD CELLS 13 /100WBC (0-0); TOTAL CELLS COUNTED 100
[2017-11-06 03:34] LABS: PLATELET ESTIMATE DECREASED
[2017-11-06 03:35] LABS: POLYCHROMASIA 1+
[2017-11-06 03:47] LABS: NUCLEATED RED BLOOD CELLS 6 /100WBC (0-0); TOTAL CELLS COUNTED 100
[2017-11-06 03:48] LABS: PLATELET ESTIMATE DECREASED
[2017-11-06 03:49] LABS: POLYCHROMASIA 1+
[2017-11-06] MEDS ORDERED: sodium bicarbonate (8.4%) inj. 150 MEQ in dextrose 5%-water 1,000 ML IV SCH (03:55)
[2017-11-06] MEDS: amiodarone/D5 360MG/200ML BAG 200 ML IV SCH (04:09)
[2017-11-06 04:34] LABS: HEMATOCRIT 25.5 % (42.0-52.0); HEMOGLOBIN 8.5 g/dl (14.0-17.9); MEAN CORPUSCULAR HEMOGLOBIN 34.5 PG (27.0-31.0); MEAN CORPUSCULAR HGB CONC 33.5 % (33.0-36.5); MEAN CORPUSCULAR VOLUME 103.1 FL (78-98); MEAN PLATELET VOLUME 9.3 FL (7.4-10.4); RED BLOOD COUNT 2.47 X10'6 (4.70-6.10); RED CELL DISTRIBUTION WIDTH 14.1 % (11.5-14.5)
[2017-11-06 04:53] LABS: ALBUMIN 3.5 G/DL (3.4-5.0); ALBUMIN/GLOBULIN RATIO 2.5 (1.1-1.5); ALKALINE PHOSPHATASE 81 IU/L (46-116); ANION GAP 34 (8-16); BLOOD UREA NITROGEN 37 MG/DL (7-18); BUN/CREATININE RATIO 12.5 (5.4-32.0); CALCIUM 7.5 MG/DL (8.5-10.1); CHLORIDE 95 MMOL/L (99-107); CREATININE 2.96 MG/DL (0.60-1.10); GLUCOSE 105 MG/DL (70-104); SODIUM 137 MMOL/L (135-145); TOTAL PROTEIN 4.9 G/DL (6.4-8.2); eGFR 21 ML/MIN
[2017-11-06 04:59] LABS: ALANINE AMINOTRANSFERASE 3251 U/L (12-78); PHOSPHORUS 15.8 MG/DL (2.3-4.5)
[2017-11-06 05:08] LABS: ASPARTATE AMINO TRANSFERASE > 7000 U/L (10-37)
[2017-11-06 05:10] LABS: POTASSIUM 9.5 MMOL/L (3.5-5.1)
[2017-11-06 05:11] LABS: TOTAL CARBON DIOXIDE 7.7 MMOL/L (24-32)
[2017-11-06 06:50] LABS: NUCLEATED RED BLOOD CELLS 12 /100WBC (0-0); PLATELET ESTIMATE DECREASED; TOTAL CELLS COUNTED 100
[2017-11-06 06:51] LABS: POLYCHROMASIA 1+
[2017-11-06 06:55] LABS: PLATELET COUNT 16 X10'3 (140-440)
[2017-11-06] MEDS ORDERED: vancomycin/NS 1 GM ADD-VANTAGE 250 ML IV SCH (07:00)
[2017-11-06] MEDS ORDERED: mineral oil/petrolatum ophthal oint EACHEYE SCH (08:00)
[2017-11-06] MEDS ORDERED: normal saline 1000ml 100 ML IV PRN (08:03)
[2017-11-06] MEDS ORDERED: heparin 1,000unit/ml 10ml vial 10 ML IV ONE (08:03)
[2017-11-06] MEDS ORDERED: heparin 1,000 units/ml 10ml inj HE ONE ×2 (08:10)
[2017-11-08] MEDS ORDERED: VANCOMYCIN LEVEL IV ONE (06:30)
== END 2017-11-06 10:35 | disposition expired | DRG 871 ==
LOC: ER 20:01 → ED HOLD 22:58 → ICU 2S 23:55
PROVIDERS: ADMIT Internal Medicine Critical Care Medicine; ATTEND Internal Medicine Critical Care Medicine
PROC: 30233L1 Transfusion of Nonautologous Fresh Plasma into Peripheral Vein, Percutaneous Approach (ICD-10-PCS; principal; 2017-11-05)
PROC: 30233R1 Transfusion of Nonautologous Platelets into Peripheral Vein, Percutaneous Approach (ICD-10-PCS; 2017-11-05)
PROC: 30233K1 Transfusion of Nonautologous Frozen Plasma into Peripheral Vein, Percutaneous Approach (ICD-10-PCS; 2017-11-05)
PROC: 0BH17EZ Insertion of Endotracheal Airway into Trachea, Via Natural or Artificial Opening (ICD-10-PCS; 2017-11-05)
PROC: 5A1945Z Respiratory Ventilation, 24-96 Consecutive Hours (ICD-10-PCS; 2017-11-05)
PROC: 04HY32Z Insertion of Monitoring Device into Lower Artery, Percutaneous Approach (ICD-10-PCS; 2017-11-05)
PROC: 02HV33Z Insertion of Infusion Device into Superior Vena Cava, Percutaneous Approach (ICD-10-PCS; 2017-11-05)
PROC: B548ZZA Ultrasonography of Superior Vena Cava, Guidance (ICD-10-PCS; 2017-11-05)
PROC: 5A1D90Z Performance of Urinary Filtration, Continuous, Greater than 18 hours Per Day (ICD-10-PCS; 2017-11-05)
DX: A41.9 Sepsis, unspecified organism (principal); J18.1 Lobar pneumonia, unspecified organism; J96.01 Acute respiratory failure with hypoxia; J96.02 Acute respiratory failure with hypercapnia; R65.21 Severe sepsis with septic shock; E87.1 Hypo-osmolality and hyponatremia; F10.239 Alcohol dependence with withdrawal, unspecified; I48.1 Persistent atrial fibrillation; N17.9 Acute kidney failure, unspecified; E87.5 Hyperkalemia; K70.30 Alcoholic cirrhosis of liver without ascites; R74.0 Nonspecific elevation of levels of transaminase and lactic acid dehydrogenase [LDH]; Z51.5 Encounter for palliative care; Z79.899 Other long term (current) drug therapy
CPT/HCPCS: 36415; 36600; 71045; 80048; 80053; 80069; 80329; 81001; 82140; 82330; 82570; 82803; 82948; 83605; 83735; 83880; 83935; 84100; 84133; 84156; 84300; 84484; 85018; 85025; 85384; 85610; 85730; 86885; 86900; 86901; 87040; 87070; 87207; 92950; 93005; 93306; 94002; 94003; 94760; 96361; 96374; 96375; 99285; A6257; A6258; A6449; C1751; C1758; J0171; J0282; J0461; J1250; J1265; J1644; J1720; J1815; J1956; J2060; J2250; J2370; J2405; J2543; J3010; J3370; J3490; J7030; P9035; P9047; P9059